=== PATIENT | male | born 1995 | race Caucasian/White ===

== ENCOUNTER 2019-01-30 01:25 | Emergency (ER) | payer MEDICAID ==
[~2019-01-30] VITALS: Ht 177.8 cm; Wt 81.6 kg
[2019-01-30 01:25] VITALS: BP 149/100
--- NOTE | 2019-01-30 01:32 | NUR ---
PT BIBA FOR DRUG INGESTION. PT ADMITTED TO EATING A 500MG EDIBLE AND DRINKING 8 BEERS OVER 3 TO 4 HOURS. PT A&O X4 AND ANSWERING QUESTIONS APPROPRIATELY. PT VOMITED X 1. PT C/O L. SIDED CHEST PAIN AND PALPITATIONS THAT DOES NOT RADIATE. PAIN LEVEL 7/10, "FEELS UNCOMFORTABLE." NKA. NO MED HX. SAFETY MEASURES IN PLACE, HOB ELEVATED, BED RAILS UP X 2, BED IN LOWEST POSITION. WAITING FOR ERMD TO EVALUATE PT.
--- NOTE | 2019-01-30 02:28 | NUR ---
PT RESTING IN BED WITH EYES CLOSED, EASILY ARROUSABLE. VSS. WILL CONTINUE TO MONITOR.
--- NOTE | 2019-01-30 03:55 | NUR ---
PT RESTING IN BED WITH EYES CLOSED, EASILY ARROUSABLE. VSS. WILL CONTINUE TO MONITOR.
--- NOTE | 2019-01-30 05:00 | NUR ---
PT RESTING IN BED. ALL NEEDS MET AT THIS TIME. WILL CONTINUE TO MONITOR.
--- NOTE | 2019-01-30 05:31 | NUR ---
Patient discharged with v/s stable. Written and verbal after care instructions given and explained. Pt encouraged to avoid alcohol and substance abuse. Patient verbalized understanding. Ambulatory with steady gait. All questions addressed prior to discharge.
[2019-01-30 05:33] VITALS: BP 112/64
== END 2019-01-30 05:31 | disposition home or self-care (01) ==
LOC: MED 01:25
DX: F10.129 Alcohol abuse with intoxication, unspecified (principal); F12.120 Cannabis abuse with intoxication, uncomplicated
CPT/HCPCS: 99283